=== PATIENT | female | born 1935 | race Caucasian/White ===

== ENCOUNTER → 2023-04-11 11:36 | Outpatient (CLI) | payer OTHER, SELFPAY ==
--- NOTE | 2023-04-11 | DI.MRI.S_ITS ---
PROCEDURE: MR KNEE LT WO CON INDICATIONS: LEFT KNEE PAIN TECHNIQUE: Noncontrast sagittal PD fast spin echo and T2 fast spin echo with fat saturation, sagittal 3-D FLASH with fat saturation; coronal T1 spin echo and PD fast spin echo with fat saturation, and axial PD fast spin echo with fat saturation through the knee. COMPARISON: None. FINDINGS: Image quality: Excellent. Menisci: There is peripheral displacement of medial meniscus bowing medial collateral ligament. Complex oblique tear involving posterior horn of medial meniscus is seen extending to inferior articulating surface. Complex oblique tear involving anterior horn, body and posterior horn of lateral meniscus is seen extending to both superior and inferior articulating surfaces. The meniscal root ligaments appear intact. Cruciate ligaments: The anterior cruciate ligament is mildly thickened. The posterior cruciate ligament is intact. Medial structures: The medial collateral ligament appears mildly thickened. Visualized portions of the pes anserinus tendons appear normal. No abnormal bursal fluid. Lateral structures: The lateral collateral ligament, long and short heads of the biceps femoris tendon appear intact. The popliteus tendon appears normal. Iliotibial band appears normal. Anterior structures: Distal quadriceps tendinosis at its superior patellar insertion is seen. Distal patellar tendinosis at its anterior tibial insertion is also noted. Patellar alignment is normal. No femoral trochlear dysplasia or ventral trochlear prominence. No edema in the infrapatellar fat pad. 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 No fracture or dislocation. No other area of marrow edema. Joint space: There is moderate knee joint fluid. There is a small bakers cyst measures 1.6 x 1.7 x 3.4 cm in size. No gross loose bodies. Normal appearing synovial plicae are incidentally noted. IMPRESSION: 1. Peripheral displacement of medial meniscus bowing medial collateral ligament. Complex tear involving posterior horn of medial meniscus extending to inferior articulating surface. Complex tear involving entire lateral meniscus extending to both superior and inferior articulating surfaces. 2. Low-grade ACL sprain. The PCL is intact. 3. Low-grade MCL sprain. 4. Distal quadriceps tendinosis and distal patellar tendinosis as above. 5. 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 No fracture or dislocation. Small to moderate joint effusion, no gross loose bodies. Small Cyr's cyst as above. Dictated by: Lucho Britton M.D. on 04/11/2023 at 13:34 Approved by: Lucho Britton M.D. on 04/11/2023 at 13:55
== END ==
PROVIDERS: PCP Internal Medicine; Referring Provider Physician Assistant Surgical; Visit Provider Physician Assistant Surgical
DX: S83.232A Complex tear of medial meniscus, current injury, left knee, initial encounter (principal); S83.512A Sprain of anterior cruciate ligament of left knee, initial encounter; S83.412A Sprain of medial collateral ligament of left knee, initial encounter; M17.12 Unilateral primary osteoarthritis, left knee; M94.262 Chondromalacia, left knee; M25.462 Effusion, left knee; M71.22 Synovial cyst of popliteal space [Baker], left knee
CPT/HCPCS: 73721